=== PATIENT | female | born 1930 | race Caucasian/White ===

== ENCOUNTER 2017-09-12 16:04 | Emergency (ER) | payer MEDICARE ==
[~2017-09-12] VITALS: Ht 162.6 cm; Wt 53.5 kg
[~2017-09-12 16:04] MED LIST: ALEN70TA3 PO; ALPR0.5T PO; AMLO5TAB2 PO; CEPH-569 PO; ESTR0.6261 PO; GABA-532 PO; LEVO100T9 PO; MEDR2.5T PO; OLME40TA3 PO; OMEP20TA20 PO; OXYC-34 PO
[2017-09-12 16:18] VITALS: BP 150/79
--- NOTE | 2017-09-12 16:41 | NUR ---
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
== END 2017-09-12 17:00 | disposition home or self-care (01) ==
LOC: ER 16:14
DX: S81.812A Laceration without foreign body, left lower leg, initial encounter (principal); S80.12XA Contusion of left lower leg, initial encounter; I10 Essential (primary) hypertension; K21.9 Gastro-esophageal reflux disease without esophagitis; E03.9 Hypothyroidism, unspecified; W22.8XXA Striking against or struck by other objects, initial encounter; Y93.89 Activity, other specified; Y92.89 Other specified places as the place of occurrence of the external cause; Y99.8 Other external cause status
CPT/HCPCS: 73590; 99284; A4606; Z7610

== ENCOUNTER 2019-05-05 01:18 | Emergency (ER) | payer MEDICARE ==
[~2019-05-05] VITALS: Ht 160 cm; Wt 57.6 kg
[~2019-05-05 01:18] MED LIST changes: -AMLO5TAB2 PO; +AMLO5TAB9 PO; -ESTR0.6261 PO; +OLME40TA12 PO; -OLME40TA3 PO; +OXYC-133 PO; -OXYC-34 PO; +[UNRECOGNIZED DRUG - CODE] PO
--- NOTE | 2019-05-05 01:33 | NUR ---
Note undone in EDM - 05/05/19 at 0139 by SRAVANTHI BIB RA FROM HOME. AAOX4. NAD, BREATHING EVEN AND UNLABORED. C/O WITNESSED SYNCOPAL EPISODE BY FRIEND RESULTED TO FALL. PT SITTING TRANSFERRING FROM CHAIR TO BED. PT DENIES PASSING OUT AND STATES THE SHE LOST HER BALANCE WHEN TRANSFERRING. PT DENIES CP. NO COMPLAINTS OF PAIN RELATED TO FALL. TO ER BED 2. HOOKED ON MONITOR. AWAITING MD HENDERSON AND ORDERS.
--- NOTE | 2019-05-05 01:33 | NUR ---
BIB RA FROM HOME. AAOX4. NAD, BREATHING EVEN AND UNLABORED. C/O WITNESSED SYNCOPAL EPISODE BY FRIEND RESULTED TO FALL. PT SITTING TRANSFERRING FROM CHAIR TO BED. PT DENIES PASSING OUT AND STATES THE SHE LOST HER BALANCE WHEN TRANSFERRING. RA REPORTS BP IN THE 90s ON FIELD. PT DENIES CP. NO COMPLAINTS OF PAIN RELATED TO FALL. TO ER BED 2. HOOKED ON MONITOR. AWAITING MD HENDERSON AND ORDERS
[2019-05-05] MEDS ORDERED: IV NS 0.9% 500 ML BAG IV ONE (02:00)
[2019-05-05] MEDS ORDERED: IBUPROFEN 400 MG TABLET PO ONE (02:00)
--- NOTE | 2019-05-05 02:07 | NUR ---
EKG AT BEDSIDE. 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
[2019-05-05] MEDS ORDERED: IBUPROFEN 400 MG TABLET ONE (02:13)
[2019-05-05 02:16] LABS: BASOPHILS % (AUTO) 0.3 % (0.0-2.0); EOSINOPHILS % (AUTO) 0.1 % (0.0-6.0); HEMATOCRIT 35 % (33-45); HEMOGLOBIN 11.8 g/dL (11.5-14.8); LYMPHOCYTES # (AUTO) 0.3 /CMM (0.8-4.8); MEAN CORPUSCULAR HGB CONC 34 g/dl (31.0-36.0); MEAN CORPUSCULAR VOLUME 95 fL (82-100); MONOCYTES # (AUTO) 0.5 /CMM (0.1-1.30); MONOCYTES % (AUTO) 5.3 % (2.0-12.0); NEUTROPHILS # (AUTO) 9.1 /CMM (1.8-8.9); NEUTROPHILS % (AUTO) 91.3 % (43.0-81.0); PLATELET COUNT (AUTO) 368 /CMM (150-450); RED BLOOD CELL COUNT(AUTO) 3.71 MIL/uL (4.0-5.2)
--- NOTE | 2019-05-05 03:15 | NUR ---
PT ASSISTED TO BATHROOM. PT AMBULATED WITH MIN ASSIST
--- NOTE | 2019-05-05 03:31 | NUR ---
CALLED ABOUT STATUS. LEFT CONTACT INFO. HINDS
[2019-05-05 03:40] LABS: CALCIUM, SERUM 9.1 mg/dL (8.5-10.1); CARBON DIOXIDE 15 mmol/L (21-32); CHLORIDE 103 mmol/L (98-107); CREATININE 1.7 mg/dL (0.6-1.3); GLUCOSE 95 mg/dL (74-106); POTASSIUM 4.3 mmol/L (3.5-5.1); SODIUM SERUM 135 mmol/L (136-145); UREA NITROGEN, BLOOD 32 mg/dL (7-18)
[2019-05-05 03:46] LABS: ALANINE AMINOTRANSFERASE 27 U/L (12-78); ALBUMIN 3.3 g/dL (3.4-5.0); ALKALINE PHOSPHATASE 73 U/L (46-116); ASPARTATE AMINOTRANSFERASE 34 U/L (15-37); BILIRUBIN,DIRECT 0.1 mg/dL (0.0-0.2); BILIRUBIN,TOTAL 0.2 mg/dL (0.2-1.0); TOTAL PROTEIN, SERUM 6.8 g/dL (6.4-8.2)
--- NOTE | 2019-05-05 04:26 | NUR ---
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
--- NOTE | 2019-05-05 04:35 | NUR ---
PT IN BED AWAITING FOR FAMILY TO PICK PT UP.
--- NOTE | 2019-05-05 04:45 | NUR ---
Patient discharged to home in stable condition. Written and verbal after care instructions given. Patient verbalizes understanding of instruction.IV removed. Catheter intact and site benign. Pressure and 4x4 applied to site. No bleeding noted. Pt ambulatory with a steady gait assisted my her daughter. pt was picked up by her daugtherCielo.
[2019-05-05 04:47] VITALS: BP 133/56
== END 2019-05-05 04:48 | disposition home or self-care (01) ==
LOC: ER 01:22
DX: R55 Syncope and collapse (principal); R42 Dizziness and giddiness; I10 Essential (primary) hypertension; K21.9 Gastro-esophageal reflux disease without esophagitis; E03.9 Hypothyroidism, unspecified
CPT/HCPCS: 36415; 71045; 80048; 80076; 84484; 85025; 93005; 99284; J7040

== ENCOUNTER 2019-05-11 14:41 | Emergency (ER) | payer MEDICARE ==
[~2019-05-11] VITALS: Ht 152.4 cm; Wt 47.6 kg
--- NOTE | 2019-05-11 14:41 | NUR ---
KEVIN RA FROM HOME,A/O X 4, DIZZINESS AFTER GETTING UP FROM BED, TO ER BED 9,MONITORED,EKG,AWAITING MD HENDERSON
[2019-05-11] MEDS ORDERED: IV NS 0.9% 1,000 ML BAG IV ONE (15:00)
--- NOTE | 2019-05-11 15:00 | NUR ---
SEEN BY DR POLLARD, EKG DONE,WAITING FOR FURTHER ORDERS
[2019-05-11] MEDS ORDERED: MELO-107 PO (15:01)
[2019-05-11] MEDS ORDERED: METO25TA20 PO (15:01)
[2019-05-11 15:10] LABS: BASOPHILS % (AUTO) 0.4 % (0.0-2.0); EOSINOPHILS % (AUTO) 0.1 % (0.0-6.0); HEMATOCRIT 35 % (33-45); HEMOGLOBIN 11.5 g/dL (11.5-14.8); LYMPHOCYTES # (AUTO) 1.5 /CMM (0.8-4.8); LYMPHOCYTES % (AUTO) 10.8 % (20.0-44.0); MEAN CORPUSCULAR HGB CONC 33 g/dl (31.0-36.0); MEAN CORPUSCULAR VOLUME 97 fL (82-100); MONOCYTES # (AUTO) 0.6 /CMM (0.1-1.30); MONOCYTES % (AUTO) 4.6 % (2.0-12.0); NEUTROPHILS # (AUTO) 11.5 /CMM (1.8-8.9); NEUTROPHILS % (AUTO) 84.1 % (43.0-81.0); PLATELET COUNT (AUTO) 549 /CMM (150-450); RED BLOOD CELL COUNT(AUTO) 3.62 MIL/uL (4.0-5.2); WHITE BLOOD COUNT (AUTO) 13.6 K/uL (4.3-11.0)
[2019-05-11 15:17] LABS: CALCIUM, SERUM 9.3 mg/dL (8.5-10.1); CARBON DIOXIDE 17 mmol/L (21-32); CHLORIDE 98 mmol/L (98-107); CREATININE 1.1 mg/dL (0.6-1.3); GLUCOSE 115 mg/dL (74-106); POTASSIUM 4.8 mmol/L (3.5-5.1); SODIUM SERUM 131 mmol/L (136-145); UREA NITROGEN, BLOOD 26 mg/dL (7-18)
[2019-05-11 15:23] LABS: ALANINE AMINOTRANSFERASE 24 U/L (12-78); ALKALINE PHOSPHATASE 66 U/L (46-116); ASPARTATE AMINOTRANSFERASE 31 U/L (15-37); BILIRUBIN,TOTAL 0.3 mg/dL (0.2-1.0)
--- NOTE | 2019-05-11 16:30 | NUR ---
PT IN BED COMFORTABLE, HOOK TO MONITOR, VSS. KEPT WARM AND SAFE
[2019-05-11 17:27] LABS: APPEARANCE,URINE Clear (CLEAR); BILIRUBIN,URINE Negative (NEGATIVE); BLOOD, URINE Trace-lysed Ery/uL (NEGATIVE); COLOR,URINE Yellow (YELLOW); KETONES,URINE 15 (NEGATIVE); LEUKOCYTE ESTERASE ,URINE Negative (NEGATIVE); NITRITE, URINE Negative (NEGATIVE); PH,URINE 6.5 (5.0-8.0); PROTEIN,URINE Negative (NEGATIVE); UGLUCOSE Negative (NEGATIVE); UROBILINOGEN,URINE 0.2 EU/dL (0.2)
[2019-05-11 17:53] LABS: BACTERIA,URINE Rare /HPF (None Seen); RBC,URINE 0-2 /HPF (0-2); SQUAMOUS EPITHELIAL CELL,UR Rare /HPF (None Seen); WBC,URINE 0-2 /HPF (0-3)
--- NOTE | 2019-05-11 18:20 | NUR ---
PT HAS STEADY GAIT WHEN TRIED TO WALK WITH WALKER. MD ABLE TO SEE PT WALK.
--- NOTE | 2019-05-11 18:39 | NUR ---
IV removed. Catheter intact and site benign. Pressure and 4x4 applied to site. No bleeding noted.Patient discharged to home in stable condition. Written and verbal after care instructions given. Patient verbalizes understanding of instruction.
[2019-05-11 18:43] VITALS: BP 128/71
== END 2019-05-11 17:55 | disposition home or self-care (01) ==
LOC: ER 14:43
DX: R55 Syncope and collapse (principal); I10 Essential (primary) hypertension; K21.9 Gastro-esophageal reflux disease without esophagitis; E03.9 Hypothyroidism, unspecified
CPT/HCPCS: 36415; 71045; 80048; 80076; 81001; 83605; 84484; 85025; 93005 ×2; 96360; 99284; J7030 ×2; 81000-TC